=== PATIENT | female | born 1945 | race Caucasian/White ===

== ENCOUNTER 2016-08-26 09:47 | Inpatient (IN) | payer OTHER ==
[2016-08-20 16:46] LABS: HEMOGLOBIN 12.1 g/dL (12.0-16.0)
[2016-08-20 16:58] LABS: BUN (BLOOD UREA NITROGEN) 19 MG/DL (6-23); CHLORIDE, SERUM 100 MMOL/L (96-112); CO2 (CARBON DIOXIDE) 33 MMOL/L (24-34); CREATININE 1.01 MG/DL (0.55-1.02); GFR AFRICAN AMERICAN 65 ML/MIN (>=60); GFR NON AFRICAN AMERICAN 56 ML/MIN (>=60); GLUCOSE, SERUM 169 MG/DL (60-99); POTASSIUM, SERUM 3.6 MMOL/L (3.5-5.3); SODIUM, SERUM 143 MMOL/L (135-148)
--- NOTE | ~2016-08-26 | HP ---
History And Physical [address] [address] NAME: DONNA GARAY : [birth year] STATUS : [facility] [id number] AGE: 71 ADM/REG DATE : 08/26/16 MR#: [id number] REPORT SERV DATE: 08/26/16 DICTATED BY: ANDREA TREJO DATE: 08/26/16 REPORT STATUS : Draft TRANSCRIBED BY: SANJIV DATE: 08/26/16 DATE OF ADMISSION: 08/26/2016 REASON FOR ADMISSION: Colovaginal fistula, status post low anterior resection with omental flap. PAST MEDICAL HISTORY: Diabetes, diverticulosis, first-degree hemorrhoids, colovaginal fistula with stenosis of the anus, hypertension, and sleep apnea. PAST SURGICAL HISTORY: Hysterectomy, adenoidectomy, cholecystectomy, ear surgery, knee surgery, thyroidectomy, and tonsillectomy. SOCIAL HISTORY: Does not smoke. She drinks two glasses of wine a week and is . FAMILY HISTORY: Positive for atrial fibrillation, NM, and thyroid cancer. ALLERGIES: PENICILLIN, SULFA, MORPHINE, CODEINE, IV DYE, AND FLAGYL. FLAGYL IS ANAPHYLACTIC. MEDICATIONS: Cipro, Levemir, metformin, glyburide, levothyroxine, metoprolol, losartan, chlorthalidone, iron, magnesium, vitamin B12, vitamin D, and aspirin. REVIEW OF SYSTEMS: As stated in the HPI, otherwise negative. PHYSICAL EXAMINATION: VITAL SIGNS: 65, 163/82, BMI of 34. GENERAL: Alert, obese white female, in no acute distress. HEENT: Normocephalic, atraumatic. EOMI. PERRLA. Oropharynx is clear. NECK: Supple. No lymphadenopathy. Clear to auscultation bilaterally. HEART: Regular rate and rhythm. ABDOMEN: Obese with a midline incision, also paramedian incision consistent with prior hysterectomy, appendectomy, and cholecystectomy. NEURO: Moves all extremities well. Cranial nerves 2 through 12 intact. No rashes. : Of note, vaginoscopy was performed, which noted the fistula present at the apex of the vagina. ASSESSMENT AND PLAN: A 71-year-old female, colovaginal fistula. PLAN: Is for low anterior resection with omental flap. MADI/SANJIV Andrea History And Physical [place] [address] [address] [address] NAME: DONNA GARAY : [birth year] STATUS : ADM IN PAT#: [id number] AGE: 71 ADM/REG DATE : 08/26/16 MR#: [id number] REPORT SERV DATE: 08/26/16 DICTATED BY: ANDREA TREJO DATE: 08/26/16 REPORT STATUS : Draft TRANSCRIBED BY: MODL DATE: 08/26/16 Niels Trejo / [id number] CC: Andrea Trejo M.D.
--- NOTE | ~2016-08-26 | OP ---
Record Of Operation [facility] [address] [place]. [address] NAME: DONNA GARAY : 47 STATUS : ADM IN PAT#: [id number] AGE: 71 ADM/REG DATE : 08/26/16 MR#: [id number] REPORT SERV DATE: 08/26/16 DICTATED BY: ANDREA JARAMILLO DATE: 08/26/16 REPORT STATUS : Draft TRANSCRIBED BY: MODRaphael DATE: 08/26/16 DATE OF PROCEDURE: 08/26/2016 PREPROCEDURE DIAGNOSIS: Diverticulosis, rectovaginal fistula. POSTPROCEDURE DIAGNOSIS: Diverticulosis, rectovaginal fistula. PROCEDURE: Lap hand assist, low anterior resection with omental flap. SKIN DRIER: Ceci. Note: The patient chose [facility] for her surgery. PROCEDURE IN DETAIL: The patient was taken to the operating room, induced under general anesthesia, placed into lithotomy. First proctoscopy with distal rectal washout was performed. Of note, vaginoscopy was performed first showing the fistula at the apex of the vagina to the left. Following prepping and draping and Raza catheter, a 6 cm incision was made at the level of the umbilicus. This was carried down to the level of the fascia using cautery. Anterior fascia was opened between two Ale's. Posterior fascia opened between two hemostats. The incision was extended proximally and distally with a hand to protect the bowel contents. The patient did have extensive adhesions from prior operations. She had a midline incision and a right paramedian incision. These were taken down with cautery in order to create enough room to place the wound protector. Once this was in place, tightened to size, the GelPort lid was placed with an 11 mm trocar. The abdomen was insufflated on high flow. Then looking in the pelvis, a 12 mm trocar was placed in the right lower quadrant, making a 1 cm stab incision and a bladed 12 mm trocar under direct laparoscopic guidance. An 11 was placed in the right upper quadrant. Once this was in place, adhesions of the small bowel in the pelvis were taken down using cautery. A loop of small bowel was actually densely adherent to the colovaginal fistula at the apex of the vagina. Once this was removed, it was actually externalized through the GelPort lid and [id number] 3-0 Vicryl stitch was placed even though there was no enterotomy but just because there was a scar in this location, it was returned to the abdomen. Then, once the adhesions were removed, attention was turned to the sigmoid colon. The white line of Toldt was mobilized up to the splenic flexure. Great care was taken and mobilized in the sigmoid colon off the left pelvic sidewall. The sigmoid colon was densely adherent to the remnant of a partial hysterectomy and the fistula was actually located on the left side of the vagina. The colon was transected from this area; then a window was made in the mesentery just at the level of the sacral promontory where the rectum begins and also proximal to the area of the disease in the descending colon. The intervening mesentery was taken with Harmonic Scalpel and then an omental flap was created by freeing the omentum from the transverse colon from the right to the left transecting on the right side in order to allow the tongue of omentum to reach the pelvis. At this point, the resected colon was brought up through the wound protector. Blue towels were placed on the abdomen. The colon was transected between 2 Ale's, and the specimen was passed off the table and sent to pathology. Of note, a stitch was placed on the area of marked fistula for identification. Then a pursestring suture of 2-0 Prolene was placed circumferentially around the distal end of the bowel. The 29 EEA anvil was Record Of Operation [address] [address] NAME: DONNA GARAY : 47 STATUS : ADM IN PAT#: [id number] AGE: 71 ADM/REG DATE : 08/26/16 MR#: [id number] REPORT SERV DATE: 08/26/16 DICTATED BY: ANDREA JARAMILLO DATE: 08/26/16 REPORT STATUS : Draft TRANSCRIBED BY: MODRaphael DATE: 08/26/16 placed in through the lumen which was tied taut around the shaft of the stapler. The undersurface was freed of all blood vessels and fat and then this was returned to the abdomen. All dirty instruments and gloves were removed at this time. Ceci went below. She dilated the anus with 1, 2, and then [address] Wood remained laparoscopic as the lid was replaced on the abdomen and she helped to guide the 29 EEA stapler by placing an 8-glove over the right hand into place at the end of the staple line. This spike was brought out anterior to the staple line until the orange base was noted. At this point, Dr. Wood removed the 8-glove, returned to completely sterile abdominal surgery and brought the anvil with great care to make sure not to twist the colon or the mesentery and it to the shaft of the stapler. It was closed under a complete laparoscopic guidance until the marker was prison in the green window for 15 seconds, through the green window for 15 seconds and then fired in the holding for 15 seconds. At this point, it was turned 2 full turns and brought out through the anus. There were 2 complete rings which were passed off the table, labeled anastomotic rings. At this point, the pelvis was filled with fluid. The anastomosis was submerged. Ceci placed the proctoscope to 5 cm and insufflated. There was a negative leak test, no bubbles. The proctoscope was removed. She re-gowned and gloved. Dr. Wood suctioned the fluid, then there was excess rim of the bowel between the anastomosis. This was reinforced with 3 [id number] Vicryl stitches and then the omental flap was secured in place over the fistula site by placing a 3-0 Vicryl through the abdominal wall and the vagina and then stitching the tongue of omentum in place. Once this was accomplished, laparoscopic surgery ended. The 2 trocars were removed and closed intracorporeally using 2-0 Vicryl UR6 [id number] stitches. Seprafilm was placed over the omentum and the midline stitch was closed with a looped PDS. She was cleaned and dried. A 4-0 Monocryl was used for the skin, subcuticular stitch followed by benzoin, Steri-Strips, Band-Aids, and a medium airstrip. She tolerated the procedure well. MADI/SANJIV Andrea Jaramillo M.D. / [id number] CC: Niels Fischer M.D.
[~2016-08-26 09:47] MED LIST: AMARYL1 MG PO; ASAB PO; COZAAR100 MG PO; GLUCPH8 PO; IRON PO; LEVEMFLXPN SC; LEVOTHYROXIN175 MCG PO; LIPITOR20 PO; LOP50 PO; MAGOX4 PO; OCUVITE PO; OMEGA 3 FISH OIL PO; VITAMIN B-122500 MCG SL; VITAMIN D1000 UNI1 PO
[2016-08-26 16:16] LABS: HEMATOCRIT 36.6 % (36.0-48.0); HEMOGLOBIN 12.4 g/dL (12.0-16.0)
[2016-08-27 05:31] LABS: BASOPHILS 0 %; EOSINOPHILS 0 %; HEMOGLOBIN 11.4 g/dL (12.0-16.0); IMMATURE GRANULOCYTES 0.3 %; IMMATURE GRANULOCYTES ABSOLUTE 0.02 10/3/uL (0.0-0.11); LYMPHOCYTES 10.7 %; LYMPHOCYTES ABSOLUTE 0.82 10/3/uL (0.67-4.30); MEAN CORPUS HGB CONC 34.9 g/dL (32.0-36.0); MEAN CORPUSCULAR HEMOGLOB 30.2 pg (26.0-34.0); MEAN CORPUSCULAR VOLUME 86.7 fL (80-100); MEAN PLATELET VOLUME 10.9 fL (9.2-13.0); MONOCYTES 3.7 %; MONOCYTES ABSOLUTE 0.28 10/3/uL (0.21-1.20); NEUTROPHILS 85.3 %; NEUTROPHILS ABSOLUTE 6.51 10/3/uL (2.02-8.40); PLATELET COUNT 142 10/3/uL (150-400); RBC DISTRIBUTION WIDTH 15.1 % (12.0-16.0); RED CELL COUNT 3.77 10/6/uL (4.0-5.6); WHITE BLOOD CELLS 7.6 10/3/uL (4.5-10.5)
[2016-08-27 05:45] LABS: HEMATOCRIT 32.7 % (36.0-48.0); MANUAL DIFF NO %
[2016-08-27 05:51] LABS: BUN (BLOOD UREA NITROGEN) 16 MG/DL (6-23); CALCIUM, SERUM 7.2 MG/DL (8.5-10.4); CHLORIDE, SERUM 98 MMOL/L (96-112); GFR AFRICAN AMERICAN 48 ML/MIN (>=60); GFR NON AFRICAN AMERICAN 42 ML/MIN (>=60); GLUCOSE, SERUM 188 MG/DL (60-99); POTASSIUM, SERUM 3.3 MMOL/L (3.5-5.3)
[2016-08-27 05:53] LABS: CO2 (CARBON DIOXIDE) 23 MMOL/L (24-34); SODIUM, SERUM 134 MMOL/L (135-148)
[2016-08-28 08:06] LABS: BUN (BLOOD UREA NITROGEN) 13 MG/DL (6-23); CALCIUM, SERUM 7.1 MG/DL (8.5-10.4); CHLORIDE, SERUM 97 MMOL/L (96-112); CREATININE 1.15 MG/DL (0.55-1.02); GFR AFRICAN AMERICAN 56 ML/MIN (>=60); GFR NON AFRICAN AMERICAN 48 ML/MIN (>=60); POTASSIUM, SERUM 3.9 MMOL/L (3.5-5.3); SODIUM, SERUM 136 MMOL/L (135-148)
[2016-08-28 08:07] LABS: CO2 (CARBON DIOXIDE) 28 MMOL/L (24-34); GLUCOSE, SERUM 130 MG/DL (60-99)
[2016-08-28] MEDS ORDERED: DIL2TAB PO (09:24)
[2017-02-15] MEDS ORDERED: ALIGN4 MG PO (16:50)
[2017-02-18] MEDS ORDERED: DIL2TAB PO (13:00)
== END 2016-08-28 12:42 | disposition home or self-care (01) | DRG 330 ==
LOC: SDC/OF 09:47 → PACU 15:43 → 5SO 17:41
PROVIDERS: Surgery
PROC: 0WUF07Z Supplement Abdominal Wall with Autologous Tissue Substitute, Open Approach (ICD-10-PCS; 2016-08-26)
PROC: 3E0T3CZ (ICD-10-PCS; 2016-08-26)
PROC: 0DBN0ZZ Excision of Sigmoid Colon, Open Approach (ICD-10-PCS; principal; 2016-08-26 11:45)
DX: K63.2 Fistula of intestine (principal); N82.3 Fistula of vagina to large intestine; E11.9 Type 2 diabetes mellitus without complications; I10 Essential (primary) hypertension; F32.9 Major depressive disorder, single episode, unspecified; G47.33 Obstructive sleep apnea (adult) (pediatric); K21.9 Gastro-esophageal reflux disease without esophagitis; E03.9 Hypothyroidism, unspecified; Z90.710 Acquired absence of both cervix and uterus; Z98.890 Other specified postprocedural states; Z90.49 Acquired absence of other specified parts of digestive tract; Z82.49 Family history of ischemic heart disease and other diseases of the circulatory system; Z80.8 Family history of malignant neoplasm of other organs or systems; Z88.2 Allergy status to sulfonamides; Z88.5 Allergy status to narcotic agent; Z91.041 Radiographic dye allergy status; Z79.899 Other long term (current) drug therapy; Z79.82 Long term (current) use of aspirin; Z79.84 Long term (current) use of oral hypoglycemic drugs
CPT/HCPCS: 36415; 80048; 82962; 85014; 85018; 85025; 86850; 86900; 86901; 88307; 93005; A9270-GY; C1765; C9113; J0690; J1956; J2250; J2405; J2710; J2795; J3010